=== PATIENT | male | born 1940 | race Caucasian/White ===

== ENCOUNTER 2017-08-14 14:07 | Inpatient (IN) | END 2017-08-22 15:30 | disposition home health service (06) | DRG 552 ==

== ENCOUNTER 2017-11-05 21:05 | Inpatient (IN) | END 2017-11-24 21:25 | DRG 459 ==

== ENCOUNTER 2017-11-24 21:29 | Inpatient (IN) | END 2017-12-09 12:48 | disposition home health service (06) | DRG 559 ==

== ENCOUNTER 2017-12-15 10:37 | Emergency (ER) | END 2017-12-15 12:32 | disposition home or self-care (01) ==